=== PATIENT | female | born 1975 | race Caucasian/White ===

== ENCOUNTER 2023-10-28 13:18 | Outpatient (CLI) | payer MEDICAID, SELFPAY | END 2023-10-28 13:19 | disposition home or self-care (01) | LOC: RAD 13:18 | PROVIDERS: PCP Family Medicine; Visit Provider Family Medicine | DX: Z12.31 Encounter for screening mammogram for malignant neoplasm of breast (principal) | CPT/HCPCS: 77063; 77067 ==

== ENCOUNTER 2023-11-09 13:02 | Outpatient (CLI) | payer MEDICAID, SELFPAY ==
--- NOTE | 2023-11-09 13:10 | CTR_ITS ---
PROCEDURE INFORMATION: Exam: CT Temporal Bones Without Contrast. Exam date and time: 11/09/2023 1:33 PM Age: 48 years old Clinical indication: Face pain; Prior surgery; Surgery date: 6+ months; Surgery type: Numerous giovani ear surgeries; Patient HX: Left facial numbness x 1 year; Additional info: Atypical facial pain/disorder of facial nerve TECHNIQUE: Imaging protocol: Computed tomography of the temporal bones without contrast. Radiation optimization: All CT scans at this facility use at least one of these dose optimization techniques: automated exposure control; mA and/or kV adjustment per patient size (includes targeted exams where dose is matched to clinical indication); or iterative reconstruction. COMPARISON: No relevant prior studies available. RADIATION DOSE METRICS: Total DLP (mGy-cm): 295.95 FINDINGS: Right inner ear: Inner ear structures including the cochlea and semicircular canals are unremarkable. Right ossicles and middle ear: The middle ear ossicles are intact. Right external auditory canal: Normal. Right facial nerve canal: Normal. Right jugular foramen: No jugular dehiscence. Right carotid canal: No aberrant carotid canal. Right mastoid air cells: Underpneumatized right mastoid air cells may be related to prior mastoid disease. Intact bony septations. Left inner ear: Question dehiscence anterior limb of the left superior semicircular canal. The yarbrough of the anterior limb of the lateral semicircular canal appear markedly thinned in the anterior wall of the vestibule also appears markedly thinned. The cochlea is unremarkable in appearance. Left ossicles and middle ear: The left middle ear ossicles are absent. Recommend correlation with surgical history soft tissue is seen filling the medial aspect of the left middle ear. Left external auditory canal: Soft tissue is seen in the left external auditory canal. There is a wall down left mastoidectomy. Left facial nerve canal: The tympanic segment of the facial nerve canal is not well seen due to loss or dehiscence of the lateral bony wall and adjacent soft tissue within the middle ear cavity. The mastoid segment of the left facial nerve appears to be intact. Left jugular foramen: No jugular dehiscence. Left carotid canal: No aberrant carotid canal. Left mastoid air cells: Left wall down mastoidectomy Soft tissues: Visualized soft tissues are unremarkable. CT/CT temporal bone wo con* [id number] IMPRESSION: Postsurgical changes are seen involving the left temporal bone with a wall down mastoidectomy. Absence of the left middle ear ossicles may be surgical in nature. Soft tissue is seen in the medial aspect of the left middle ear which may be related to scar tissue, however, other etiologies including cholesteatoma cannot be excluded. The yarbrough of the lateral and superior semicircular canals appear to be thinned/dehiscent. The anterior wall of the vestibule also appears markedly thinned. The lateral bony wall of the tympanic segment of the left facial nerve is also dehiscent or thinned. The course of the tympanic segment of the left facial nerve is adjacent to the soft tissue seen within the medial portion of the left middle ear cavity. Recommend clinical correlation and comparison to prior imaging if available. Recommend follow up imaging as clinically warranted.
== END 2023-11-09 13:03 | disposition home or self-care (01) ==
LOC: RAD 13:04
PROVIDERS: PCP Family Medicine; Visit Provider Otolaryngology
DX: G50.1 Atypical facial pain (principal); G51.9 Disorder of facial nerve, unspecified; H71.92 Unspecified cholesteatoma, left ear
CPT/HCPCS: 70480

== ENCOUNTER 2023-11-27 16:22 | Emergency (ER) | payer MEDICAID, SELFPAY ==
[2023-11-27] VITALS (7 sets, daily range): BP systolic 130–166; BP diastolic 84–96; PULSE 84–99; RESP 16–18; TEMP 37; O2SAT 92–97; BMI 41.8
--- NOTE | 2023-11-27 16:55 | ED_ITS ---
HPI - Abdominal Pain 2 General: Chief Complaint: Abdominal Pain Stated Complaint: stomach pain, vomitting, leg pain Time Seen by Provider: 11/27/23 16:41 History of Present Illness: 48-year-old female with a history of obe sity and hypertension who presents to the emergency room with right upper quadrant pain, right flank pain and sciatic pain. She says she had been able to get out of bed because of her back. She is been having some nausea and vomiting. She says she was post to have her gallbladder out several years ago but ended up not having it done. No fevers. No altered mental status. No chest pain. Review of Systems 2 Narrative: Constitutional symptoms: Negative except as documented in HPI. Skin symptoms: Negative except as documented in HPI. Eye symptoms: Negative except as documented in HPI. ENMT symptoms: Negative except as documented in HPI. Respiratory symptoms: Negative except as documented in HPI. Cardiovascular symptoms: Negative except as documented in HPI. Gastrointestinal symptoms: Negative except as documented in HPI. Genitourinary symptoms: Negative except as documented in HPI. Musculoskeletal symptoms: Negative except as documented in HPI. Neurologic symptoms: Negative except as documented in HPI. Psychiatric symptoms: Negative except as documented in HPI. Endocrine symptoms: Negative except as documented in HPI. PFSH ED 2 PFSH: Family History (Updated 10/27/23 @ 14:44 by SHYLA Beebe) Grandmother Ovarian cancer Grandfather Cancer unknown what kind Social History (Updated 10/27/23 @ 14:45 by SHYLA Beebe) Smoking and tobacco/nicotine status: current every day tobacco/nicotine user e- cigarettes E-Cigarette Details: vaporizer device and with nicotine Alcohol intake: never Physical Exam 2 Narrative: EXAM NARRATIVE: General: Alert, no acute distress. Skin: Warm, dry. Head: Normocephalic, atraumatic. Neck: Supple, trachea midline. Eye: Extraocular movements are intact. Ears, nose, mouth and throat: mucosa moist. Cardiovascular: Regular, Normal peripheral perfusion. Respiratory: Lungs are clear to auscultation, respirations are non-labored, breath sounds are equal, Symmetrical chest wall expansion. Gastrointestinal: Soft, right upper quadrant pain, Non distended Musculoskeletal: Normal ROM, no deformity. Neurological: Alert and oriented, No focal neurological deficit observed. Psychiatric: Cooperative, appropriate mood & affect. Course 2 Vital Signs: Vital signs: Vital Signs Temperature 98.6 F 11/27/23 16:31 Pulse Rate 90 11/27/23 20:12 Respiratory Rate 17 11/27/23 20:12 Blood Pressure 166/96 11/27/23 20:12 Pulse Oximetry 93 11/27/23 20:12 Oxygen Delivery Me thod Room Air 11/27/23 20:12 MDM - Abdominal Pain Medical Decision Making Differential diagnosis for patient presenting with right upper quadrant abdominal pain including but not limited to and based on the above HPI, review of systems and physical exam: Cholelithiasis or cholecystitis. Hepatitis. Diverticulitis. Constipation. Ureterolithiasis. Urinary tract infection. Appendicitis. colitis. small bowel obstruction. crohn's flare. pancreatitis. gastritis. peptic ulcer. Aortic disection. Workup including imaging and lab work replaced based on the above differential, history and exam to evaluate differential diagnosis Lab Review: Laboratory results were reviewed and interpreted by myself the emergency room physician. No leukocytosis and CRP is not elevated. No anemia. No elevation in her LFTs. Ultrasound gallbladder: 3.5 mm stone and a positive Arnold sign. No evidence of gallbladder wall thickening or pericholecystic fluid. This was reviewed and interpreted by myself the emergency room physician. I also reviewed the radiology report. Consultation: I spoke with Dr. Carrasco about the patient. He recommends pain control and Augmentin and he will see her in clinic. I reviewed the patient's medical record. Reexamination: Patient appears much more comfortable now. Pain seems much more under control. Assessment and plan: Cholelithiasis Biliary colic Sciatica -IV Decadron and IV Toradol and IV Zofran. Symptoms have improved quite a bit. Treating her both for cholelithiasis/biliary colic and sciatica - Discharged home - Discussed findings and plan with patient. Answered any questions. - All laboratory values were reviewed and interpreted personally by myself, the ER physician - All imaging was reviewed and interpreted personally by myself, the ER physician. - Evaluation and treatment of this problem were appropriate in the emergency setting Lab Data 11/27/23 16:54 11/27/23 16:54 Labs/Radiology: Radiology Impressions Gallbladder Ultrasound 11/27/23 17:21 IMPRESSION: 1. Sonographically positive Arnold's sign suggesting possible cholecystitis. 2. Echogenic liver consistent with fatty infiltration of the liver. 3. 3.6 cm gallstone. Laboratory Results WBC 6.20 10^3/uL (3.29-11.43) 11/27/23 16:54 RBC 4.55 10^6/uL (3.85-5.65) 11/27/23 16:54 Hgb 12.20 g/dL (11.27-16.99) 11/27/23 16:54 Hct 38.7 % (36-47) 11/27/23 16:54 MCV 85.1 fl (85-98) 11/27/23 16:54 MCH 26.8 pg (27-33) L 11/27/23 16:54 MCHC 31.5 g/dL (30-55) 11/27/23 16:54 RDW 14.7 % (12.1-15.1) 11/27/23 16:54 Plt Count 247 10^3/cmm (157-399) 11/27/23 16:54 MPV 9.7 fL (7.4-10.4) 11/27/23 16:54 Neut % (Auto) 60.4 % 11/27/23 16:54 Lymph % (Auto) 27.4 % 11/27/23 16:54 [place] % (Auto) 7.9 % 11/27/23 16:54 Eos % (Auto) 3.4 % 11/27/23 16:54 Baso % (Auto) 0.6 % 11/27/23 16:54 Neut # (Auto) 3.74 10^3/uL (1.8-7.7) 11/27/23 16:54 Lymph # (Auto) 1.7 10^3/uL (0.8-4.8) 11/27/23 16:54 [place] # (Auto) 0.5 10^3/uL (0.2-0.9) 11/27/23 16:54 Eos # (Auto) 0.2 10^3/uL (0.0-0.8) 11/27/23 16:54 Baso # (Auto) 0.0 10^3/uL (0.0-0.1) 11/27/23 16:54 Nucleated RBC % (auto) 0 % 11/27/23 16:54 Nucleated RBCs # 0.0 /100WBC 11/27/23 16:54 Sodium 138 mmol/L (136-145) 11/27/23 16:54 Potassium 3.5 mmol/L (3.5-5.1) 11/27/23 16:54 Chloride 102 mmol/L (98-107) 11/27/23 16:54 Carbon Dioxide 26 mmol/L (22-29) 11/27/23 16:54 Anion Gap 13.5 (5-19) 11/27/23 16:54 BUN 8 mg/dL (6-20) 11/27/23 16:54 Creatinine 0.7 mg/dL (0.5-0.9) 11/27/23 16:54 GFR Calculation 90.1 mL/min (90-130) 11/27/23 16:54 Glucose 112 mg/dL (65-115) 11/27/23 16:54 Calculated Osmolality 285 mOsm/kg (285-295) 11/27/23 16:54 Calcium 8.7 mg/dL (8.5-10.5) 11/27/23 16:54 Total Bilirubin 0.2 mg/dL (0.15-1.2) 11/27/23 16:54 AST 18 U/L (0-32) 11/27/23 16:54 ALT 27 U/L (0-33) 11/27/23 16:54 Alkaline Phosphatase 96 U/L (35-105) 11/27/23 16:54 C-Reactive Protein 5.9 mg/L (0.0-4.9) H 11/27/23 16:54 Total Protein 6.7 g/dL (6.6-8.7) 11/27/23 16:54 Albumin 4.1 g/dL (3.5-5.2) 11/27/23 16:54 Globulin 2.6 g/dL (1.3-4.6) 11/27/23 16:54 Lipase 24 U/L (13-60) 11/27/23 16:54 Urine Color Yellow (Yellow) 11/27/23 17:05 Urine Appearance Clear (CLEAR) 11/27/23 17:05 Urine pH 6.5 (5-7) 11/27/23 17:05 Ur Specific [place]ley 1.015 (1.005-1.030) 11/27/23 17:05 Urine Protein Neg (Negative) 11/27/23 17:05 Urine Glucose (UA) Norm (Normal) 11/27/23 17:05 Urine Ketones Negative (Negative) 11/27/23 17:05 Urine Blood Neg (Negative) 11/27/23 17:05 Urine Nitrate Negative (Negative) 11/27/23 17:05 Urine Bilirubin Neg (Negative) 11/27/23 17:05 Urine Urobilinogen Norm mg/dL (Negative) 11/27/23 17:05 Ur Leukocyte Esterase Negative (Negative) 11/27/23 17:05 Urine RBC None /hpf (0-2) 11/27/23 17:05 Urine WBC None /hpf (0-5) 11/27/23 17:05 Ur Squamous Epith Cells 0-4 /hpf (0-5) H 11/27/23 17:05 Amorphous Sediment Not Reportable 11/27/23 17:05 Urine Bacteria None /hpf (NONE) 11/27/23 17:05 Urine Opiates Screen Negative ng/mL (Negative) 11/27/23 17:05 Ur Barbiturates Screen Negative ng/mL (Negative) 11/27/23 17:05 Ur Phencyclidine Scrn Negative ng/mL (Negative) 11/27/23 17:05 Ur Amphetamines Screen Negative ng/mL (Negative) 11/27/23 17:05 U Benzodiazepines Scrn Negative ng/mL (Negative) 11/27/23 17:05 Urine Cocaine Screen Negative ng/mL (Negative) 11/27/23 17:05 U Marijuana (THC) Screen Negative ng/mL (Negative) 11/27/23 17:05 All radiology interpretation(s) finalized by discharge Discharge Plan Discharge Patient Disposition: Home Clinical Impression: Sciatica, Biliary colic Cholelithiasis Qualifiers: Cholelithiasis location: gallbladder Cholecystitis presence: without cholecystitis Biliary obstruction: without biliary obstruction Qualified Code(s): K80.20 - Calculus of gallbladder without cholecystitis without obstruction Condition: Stable Prescriptions: New dexamethasone 6 mg tablet 6 mg PO DAILY 5 Days Qty: 5 0RF tramadol 50 mg tablet 50 mg PO Q8H PRN (Reason: pain) Qty: 20 0RF diclofenac sodium 50 mg tablet,delayed release (DR/EC) 50 mg PO Q12H Qty: 20 0RF amoxicillin-pot clavulanate 875-125 mg tablet 1 tab PO BID 10 Days Qty: 20 0RF ondansetron 8 mg tablet,disintegrating 8 mg PO .q6 PRN (Reason: nausea and vomiting) Qty: 14 0RF No Action gabapentin 300 mg capsule 300 mg PO TID Qty: 30 0RF fluoxetine 20 mg capsule 20 mg PO DAILY Qty: 60 0RF metoprolol succinate 25 mg tablet extended release 24 hr 25 mg PO DAILY Qty: 20 0RF Rx Instructions: take 1/2 a tablet Discharge Orders: Discharge ED (Routine); Ordered 11/27/23 Ordered By: Aye Jackson Referrals: Zach Morales MD [Physician] - 4-7 days (Call for an appointment on Thursday) Rossana Márquez DO [Primary Care Provider] - Discharge Diet: Low Cholesterol and Low Fat Discharge Activity: Increase activity as tolerated Patient Instructions: Biliary Colic (ED), Sciatica (ED), Abdominal Pain (ED), Opioid Safety Activity Restrictions/Additional Instructions: Thank you for choosing [facility] for your healthcare needs today. Please realize this is an emergency room and that we are providing you with a medical screening exam and this may not be complete and all inclusive of all the testing and or work up that you may need to determine your ailment or severity of your illness. You have been screened and evaluated and felt safe for discharge. Health conditions do change or evolve sometimes and as such it is important that you follow up with your Primary Doctor to be re checked, 3-5 days is a general good time frame for follow up. You are always welcome to return to the ED for re assessment if your symptoms are worsening or you have new concerns Coding Level of Care Code ED Wire Winding Machine Operator for Julito Hdz
[2023-11-27 17:01] LABS: Basophils % 0.6 %; Eosinophils # 0.2 10^3/uL (0.0-0.8); Eosinophils % 3.4 %; Hematocrit 38.7 % (36-47); Lymphocytes # 1.7 10^3/uL (0.8-4.8); Lymphocytes % 27.4 %; Mean Corpuscular HGB Conc 31.5 g/dL (30-55); Mean Corpuscular Hemoglobin 26.8 pg (27-33); Mean Corpuscular Volume 85.1 fl (85-98); Mean Platelet Volume 9.7 fL (7.4-10.4); Monocytes # 0.5 10^3/uL (0.2-0.9); Monocytes % 7.9 %; Neutrophils # 3.74 10^3/uL (1.8-7.7); Neutrophils % 60.4 %; Nucleated Red Blood Cells % 0 %; Platelet Count 247 10^3/cmm (157-399); Red Blood Count 4.55 10^6/uL (3.85-5.65); Red Cell Distribution Width 14.7 % (12.1-15.1)
[2023-11-27] MEDS: dexamethasone 10 mg/mL INJ IVP (17:04)
[2023-11-27] MEDS: ketorolac 30 mg/mL INJ IVP (17:04)
[2023-11-27] MEDS: ondansetron 2 mg/ML SDV 2 mL 4 MG IVP (17:04)
[2023-11-27 17:21] LABS: Alanine Aminotransferase 27 U/L (0-33); Albumin Level 4.1 g/dL (3.5-5.2); Alkaline Phosphatase 96 U/L (35-105); Anion Gap 13.5 (5-19); Aspartate Amino Transferase 18 U/L (0-32); Blood Urea Nitrogen 8 mg/dL (6-20); C Reactive Protein 5.9 mg/L (0.0-4.9); Calcium 8.7 mg/dL (8.5-10.5); Carbon Dioxide 26 mmol/L (22-29); Chloride 102 mmol/L (98-107); Creatinine Clr Calc Pharmacy 117.7244; Globulin 2.6 g/dL (1.3-4.6); Glomerular Filtration Rate 90.1 mL/min (90-130); Glucose 112 mg/dL (65-115); Lipase 24 U/L (13-60); Osmolality Calculated 285 mOsm/kg (285-295); Potassium 3.5 mmol/L (3.5-5.1); Sodium 138 mmol/L (136-145); Total Bilirubin 0.2 mg/dL (0.15-1.2); Total Protein 6.7 g/dL (6.6-8.7)
--- NOTE | 2023-11-27 17:21 | USR_ITS ---
PROCEDURE INFORMATION: Exam: US Abdomen, Limited; Right Upper Quadrant Exam date and time: 11/27/2023 6:57 PM Age: 48 years old Clinical indication: Abdominal pain; Acute; Additional info: Right upper quadrant pain, concern for cholecystitis TECHNIQUE: Imaging protocol: Real time ultrasound of the abdomen with image documentation. Limited exam focused on the right upper quadrant. COMPARISON: No relevant prior studies available. FINDINGS: Liver: 16.4 cm liver. Echogenic liver consistent with fatty infiltration of the liver. Gallbladder: Sonographically positive Arnold's sign suggesting possible cholecystitis. 3.6 cm gallstone. Biliary ducts: 4 mm common bile duct. Pancreas: Pancreas partially obscured by bowel gas. Right kidney: 10.5 x 5.2 x 5.6 cm right kidney with estimated volume 163 cc. Portal venous: Patent portal vein. US/US gall bladder [id number] IMPRESSION: 1. Sonographically positive Arnold's sign suggesting possible cholecystitis. 2. Echogenic liver consistent with fatty infiltration of the liver. 3. 3.6 cm gallstone.
[2023-11-27 17:29] LABS: Bilirubin Urine Neg (Negative); Blood Urine Neg (Negative); Glucose Urine UA Norm (Normal); Ketones Urine Negative (Negative); Leukocyte Esterase Urine Negative (Negative); Nitrate Urine Negative (Negative); Protein Urine Neg (Negative); Specific Gravity, Urine 1.015 (1.005-1.030); Squamous Epithelial Cell Urine 0-4 /hpf (0-5); Urine Appearance Clear (CLEAR); Urine Color Yellow (Yellow); Urobilinogen Urine Norm (Negative); pH Urine 6.5 (5-7)
[2023-11-27 17:34] LABS: Amphetamines Screen Urine Negative (Negative); Barbiturates Screen Urine Negative (Negative); Benzodiazepines Screen Urine Negative (Negative); Cocaine Screen Urine Negative (Negative); Opiate Screen Urine Negative (Negative); PCP Screen Urine Negative (Negative); THC Screen Urine Negative (Negative)
== END 2023-11-27 20:46 | disposition home or self-care (01) ==
PROVIDERS: Emergency Provider Emergency Medicine; PCP Family Medicine
DX: K80.20 Calculus of gallbladder without cholecystitis without obstruction (principal); M54.30 Sciatica, unspecified side; K80.50 Calculus of bile duct without cholangitis or cholecystitis without obstruction; F17.290 Nicotine dependence, other tobacco product, uncomplicated
CPT/HCPCS: 76705; 80053; 80306; 81001; 83690; 85025; 86140; 96374; 96375; 99285; J1100; J1885; J2405

== ENCOUNTER 2023-12-21 05:10 | Day surgery (SDC) | payer MEDICAID, SELFPAY ==
[2023-12-21] VITALS (18 sets, daily range): BP systolic 113–163; BP diastolic 69–113; PULSE 71–91; RESP 8–18; TEMP 36.1–36.9; O2SAT 90–98; BMI 42.7
[2023-12-21 05:43] LABS: OR HCG Qualitative Urine Negative (Negative)
[2023-12-21] MEDS: sodium chloride 0.9% 1,000 ML 30 ML IV (06:33)
--- NOTE | 2023-12-21 06:51 | P.HPUD_ITS ---
Surgery/Procedure H&P Update DATE OF PROCEDURE: December 21, 2023 DATE H&P PERFORMED: 12/09/23 H&P UPDATE INFORMATION: I have reviewed H&P completed within last 30 days, I have examined patient prior to procedure, No changes to prior documentation and H&P is in [facility] EMR on date indicated PREOP DIAGNOSIS: symptomatic cholelithiasis PLANNED PROCEDURE: Operation Date: 12/21/23 07:00 Proposed Procedures p Laparoscopic Cholecystectomy/ possible open [id number], 32639, R10.11(Not Applicable) - Zach Morales MD
[2023-12-21] MEDS: ceFAZolin 2,000 mg SDV 2000 MG IVP (06:59)
--- NOTE | 2023-12-21 06:59 | P.ANESASSM_ITS ---
Pre-Anesthetic Assessment Height/Weight: Height 1.6 m Weight 109.316 kg Temp Pulse Resp BP Pulse Ox O2 Del Method 97 F L 76 18 154/93 94 Room Air 12/21/23 06:07 12/21/23 06:07 12/21/23 06:07 12/21/23 06:07 12/21/23 06:07 12/21/23 06:14 Preop Diagnosis: symptomatic cholelithiasis Operation Date: 12/21/23 07:00 Proposed Procedures p Laparoscopic Cholecystectomy/ possible open [id number], 80118, R10.11(Not Applicable) - Zach Morales MD Familial anesthetic complications: None Was Beta Maggy taken within 24 hours: N/A Was Clonidine taken within 24 hours: N/A Last intake: Intake Last Liquid Date 12/20/23 Last Liquid Time 22:00 Last Solid Date 12/20/23 Last Solid Time 19:00 Social Tobacco and No alcohol Exam alert, oriented x 3, clear to auscultation bilaterally and regular rate & rhythm Airway Dentition: other (missing) Metabolic Morbid Obesity Anesthetic Plan ASA status: 2 Anesthesia: General Risk of > 500 ml blood loss (7ml/kg in children): No Medications/Allergies Home Medications Medication Instructions Recorded Confirmed Last Taken Type fluoxetine 20 mg capsule 20 mg PO DAILY #60 caps 10/27/23 12/18/23 12/21/23 04:00 Rx gabapentin 300 mg capsule 300 mg PO TID #30 caps 10/27/23 12/18/23 12/21/23 04:00 Rx metoprolol succinate 25 mg 25 mg PO DAILY #20 tabs 10/27/23 12/18/23 12/21/23 04:00 Rx tablet,extended release 24 hr Allergies Allergy/AdvReac Type Severity Reaction Status Date / Time shellfish derived Allergy Severe ALGY-Hives Verified 12/09/23 08:03 latex Allergy ALGY-Rash Verified 12/18/23 09:00 Current Medications Generic Name Dose Route Start Last Admin Trade Name Freq PRN Reason Stop Dose Admin Sodium Chloride 1,000 mls @ 30 mls/hr 12/21/23 06:00 12/21/23 06:33 Sodium Chloride 0.9% IV 30 mls/hr .Q24H MATTHIEU Administration PFSH Anesthesia Medical History Psychiatric care Family History Grandmother Ovarian cancer Grandfather Cancer unknown what kind Social History Smoking and tobacco/nicotine status: current every day tobacco/nicotine user e- cigarettes E-Cigarette Details: vaporizer device and with nicotine Alcohol intake: never Female Reproductive History Date of last menstrual period: 10/13/23 Data Anesthesia Cardiac Studies: No Data to Display
[2023-12-21] MEDS: BUPivacaine 0.25% INJ 30 mL 20 ML INJECTION (07:21)
[2023-12-21] MEDS: lidocaine-epi 1% PF 1:200,000 30 mL SDV 20 ML INJECTION (07:21)
--- NOTE | 2023-12-21 10:26 | PM.OP ---
Operative Report Date of procedure: December 21, 2023 Pre-op diagnosis: Symptomatic cholelithiasis Post-op diagnosis: Hydropic gallbladder, chronic cholecystitis Post-op findings: Gallbladder was hydropic, 120 cc of clear fluid were aspirated, chronically inflamed gallbladder with significant inflammatory changes of the hepatocystic triangle and adhesions from the omentum to the gallbladder. Stone noted to be impacted at the level of the cystic and infundibulum. 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 Intrahepatic fundus. Procedure done: Laparoscopic cholecystectomy Specimens removed/disposition: Gallbladder and contents Surgeon: Zach Morales MD Transcription Specialist: CALLI OR STaff Estimated blood loss: 20 Brief History: 48-year-old female with history of symptomatic cholelithiasis and gallstone measuring 3.6 cm on ultrasound who presented for excision. After discussion we will resume benefits as documented in my preop note we decided to proceed Procedure: Patient was brought into the OR, she was placed in the supine position. General anesthesia was given. The abdomen was prepped and draped in the usual sterile fashion. A timeout was conducted. The abdomen was accessed at Olivo's point with an Optiview trocar measuring 5 mm, pneumoperitoneum was obtained and initial laparoscopy showed no evidence of visceral injury during entry. A 12 mm trocar was placed under direct visualization on the supraumbilical location, I then proceeded to place a 5 mm trocars in the epigastrium right upper quadrant and right flank under direct visualization. The gallbladder was extremely distended, I decompressed the gallbladder with a needle obtaining 120 cc of clear fluid. The gallbladder was grasped from the fundus and retracted cephalad, adhesions from the omentum to the gallbladder and infundibulum were bluntly taken down. The infundibulum was very hard, there was a stone impacted at this level. I grasped the infundibulum and retracted in the inferior lateral direction exposing the hepatocystic triangle. The peritoneum anterior to the hepatocystic triangle was open with electrocautery, this opening was carried on the medial and lateral direction to the edges of the liver and then on the sides of the gallbladder to allow for better exposure. There was significant fatty infiltration on the cystic plate. With careful blunt and electrocautery dissection I was able to encircle the cystic artery and the cystic duct, lower third of the gallbladder was also elevated from the liver bed, a complete critical view of safety was not able to be obtained as it was noted there was a posterior branch of the cystic artery and therefore I proceeded to take down the cystic artery both anterior and the posterior branch before continuing that dissection. The cystic artery was double clipped proximally single clip distally on both anterior and posterior branches and cut. The arterial lumen was verified after transection. After this I was able to completely elevate the lower third of the gallbladder and only the cystic duct was noted to be entering the gallbladder. I then proceeded to double clipped the cystic duct proximally and single clipped distally and transected. The gallbladder was then removed from the liver bed with electrocautery, the fundus of the gallbladder was intrahepatic and therefore a small portion of the posterior wall was left in place to avoid an injury to the liver. Once the gallbladder was removed there is a small area of mucosa was cauterized, the liver bed otherwise appear hemostatic, the clips were in good position there was no evidence of bile leak and there was no evidence of bleeding. The area was suctioned and irrigated. I then proceeded to retrieve the specimen in an Endo Catch bag through the supraumbilical trocar site. It was apparent that due to the size of the stone inside of the gallbladder the small opening in the fascia was not enough to accommodate the size of it. Therefore I proceeded to increase my surgical incision from 1 cm to 3 cm, I dissected all the way down to the fascia and the fascia was sharply opened to allow passage of the gallbladder and contents. I then proceeded to close the supraumbilical trocar site fascia with a Billy-Nidia suture passer under direct visualization, 2 [id number] sutures were required. After this I filledl umbilical wound with water and tested for any air leak no air leak was noted. The epigastric right upper quadrant and right flank trocars were removed under direct visualization, the left upper quadrant trocar was used to remove the pneumoperitoneum and subsequently removed. The umbilical trocar site was closed in layers to use #0 Vicryl for Rodrigo's fascia, #3-0 Vicryl for the subcutaneous tissue #4-0 Monocryl for the skin. The other wounds were closed with #4-0 Monocryl for the skin. Dermabond was applied. At the end of the procedure all counts were correct, the patient tolerated well the procedure and was transferred to the PACU in stable condition.
[2023-12-21] MEDS: fentaNYL 50 mcg/mL INJ 2mL IVP ×2 (10:29→10:41)
[2023-12-21] MEDS: oxyCODONE 5 mg IR Tab/Cap PO (11:10)
--- NOTE | 2023-12-21 13:30 | ANE.PACU2 ---
Inpatient post-anesthesia follow up: Airway intact: Yes Vital signs: Temperature 97 F Pulse Rate 78 Respiratory Rate 18 Blood Pressure 132/84 Pulse Oximetry 94 Oxygen Delivery Me thod Room Air Oxygen Flow Rate 1 Fraction of Inspir ed Oxygen Hydration adequate: Yes Nausea and vomiting: No Pain level: 1 Mental status: Baseline
== END 2023-12-21 11:35 | disposition home or self-care (01) ==
PROVIDERS: PCP Family Medicine; Visit Provider Surgery
PROC: 0FT44ZZ Resection of Gallbladder, Percutaneous Endoscopic Approach (ICD-10-PCS; CPT 47562; principal; 2023-12-21 07:00)
DX: K80.10 Calculus of gallbladder with chronic cholecystitis without obstruction (principal); G47.33 Obstructive sleep apnea (adult) (pediatric); E11.9 Type 2 diabetes mellitus without complications; E66.01 Morbid (severe) obesity due to excess calories; Z68.41 Body mass index [BMI] 40.0-44.9, adult; F17.290 Nicotine dependence, other tobacco product, uncomplicated
CPT/HCPCS: 81025; 88304; J0690; J1100; J1885; J2250; J2405; J2704; J3010; J3490; J7030

== ENCOUNTER 2024-03-03 06:51 | Day surgery (SDC) | payer MEDICAID, SELFPAY ==
--- NOTE | 2024-03-03 06:08 | W.PM.OPSFHP ---
Same Day Surgery H&P Indication for Procedure/HPI DATE OF PROCEDURE: March 03, 2024 CHIEF COMPLAINT/INDICATIONFOR SURGICAL PROCEDURE: need for screening colonoscopy PREOP DIAGNOSIS: need for screening colonoscopy PLANNED PROCEDURE: Operation Date: 03/03/24 08:20 Proposed Procedures p Colonoscopy 08361, G0121, Z12.11(Not Applicable) - Zach Morales MD Medications/Allergies* Home Medications Medication Instructions Recorded Confirmed Type metoprolol succinate 25 mg 12.5 mg PO DAILY 03/01/24 03/01/24 History tablet,extended release 24 hr Allergies/Adverse Reactions Allergy/AdvReac Type Severity Reaction Status Date / Time shellfish derived Allergy Severe ALGY-Hives Verified 03/01/24 10:31 latex Allergy ALGY-Rash Verified 03/01/24 10:31 Pertinent History/Comorbid Conditions* Medical History (Updated 01/25/24 @ 14:45 by Juan Ramon Connor MD) Psychiatric care Family History (Updated 10/27/23 @ 14:44 by SHYLA Beebe) Ovarian cancer Grandmother Cancer Grandfather unknown what kind Social History Smoking and tobacco/nicotine status: never used tobacco/nicotine Alcohol intake: never Pertinent Exam Findings alert, oriented x 3, clear to auscultation bilaterally and regular rate & rhythm Recommendations Surgery/Procedure today Coding Level of Care Code Acute Code for Chg Fwd
[2024-03-03 07:06] VITALS: BP 153/98; PULSE 90; RESP 18; TEMP 36.2; O2SAT 98; BMI 43.4
[2024-03-03 07:11] LABS: OR HCG Qualitative Urine Negative (Negative)
[2024-03-03] MEDS: sodium chloride 0.9% 1,000 ML 30 ML IV (07:16)
--- NOTE | 2024-03-03 07:45 | ANES.PREANE2 ---
Pre-Anesthetic Assessment Height/Weight: Height 5 ft 3 in Weight 245 lb Temp Pulse Resp BP Pulse Ox O2 Del Method 97.1 F L 90 18 153/98 98 Room Air 03/03/24 07:06 03/03/24 07:06 03/03/24 07:06 03/03/24 07:06 03/03/24 07:06 03/03/24 07:06 Preop Diagnosis: need for screening colonoscopy Operation Date: 03/03/24 08:20 Proposed Procedures p Colonoscopy 37982, G0121, Z12.11(Not Applicable) - Zach Morales MD Was Beta Maggy taken within 24 hours: Yes Was Clonidine taken within 24 hours: N/A Last intake: Intake Last Liquid Date 03/02/24 Last Liquid Time 22:30 Last Solid Date 03/01/24 Last Solid Time 17:00 Social No alcohol and No tobacco Quit smoking 3 years ago Exam alert, oriented x 3, clear to auscultation bilaterally and regular rate & rhythm Airway Submandibular: within normal limits Cervical ROM: within normal limits Mallampati: Class III Comments: Comments: Very poor dentition. Denies any loose teeth Anesthetic Plan ASA status: 2 Anesthesia: MAC Other: No prior issues with anesthesia Completed bowel prep History of rapid heart rate, on daily metoprolol. Quit smoking 3 years ago, no inhaler use METs greater than 4 test negative this a.m. Plan for MAC anesthesia Medications/Allergies Home Medications Medication Instructions Recorded Confirmed Last Taken Type gabapentin 300 mg capsule 300 mg PO TID #30 caps 10/27/23 03/01/24 03/02/24 Rx fluoxetine 20 mg capsule 20 mg PO DAILY #30 caps 01/25/24 03/01/24 03/02/24 Rx metoprolol succinate 25 mg 12.5 mg PO DAILY 03/01/24 03/01/24 03/02/24 History tablet,extended release 24 hr Allergies Allergy/AdvReac Type Severity Reaction Status Date / Time shellfish derived Allergy Severe ALGY-Hives Verified 03/01/24 10:31 latex Allergy ALGY-Rash Verified 03/01/24 10:31 Current Medications Generic Name Dose Route Start Last Admin Trade Name Freq PRN Reason Stop Dose Admin Sodium Chloride 1,000 mls @ 30 mls/hr 03/03/24 07:00 03/03/24 07:16 Sodium Chloride 0.9% IV 30 mls/hr .Q24H MATTHIEU Administration PFSH Anesthesia Medical History Psychiatric care Family History Grandmother Ovarian cancer Grandfather Cancer unknown what kind Social History Smoking and tobacco/nicotine status: never used tobacco/nicotine Alcohol intake: never Data Anesthesia Cardiac Studies: No Data to Display
[2024-03-03 08:32] VITALS: BP 120/83; PULSE 103; RESP 20; TEMP 36.5; O2SAT 97
[2024-03-03 08:47] VITALS: BP 120/90; PULSE 88; RESP 18; O2SAT 99
--- NOTE | 2024-03-03 09:05 | ANE.PACU2 ---
Inpatient post-anesthesia follow up: Airway intact: Yes Vital signs: Temperature 97.7 F Pulse Rate 88 Respiratory Rate 18 Blood Pressure 120/90 Pulse Oximetry 99 Oxygen Delivery Me thod Room Air Oxygen Flow Rate Fraction of Inspir ed Oxygen Hydration adequate: Yes Nausea and vomiting: No Pain level: 1 Mental status: Baseline
== END 2024-03-03 09:05 | disposition home or self-care (01) ==
PROVIDERS: Student in an Organized Health Care Education/Training Program; PCP Family Medicine; Visit Provider Surgery
PROC: 0DJD8ZZ Inspection of Lower Intestinal Tract, Via Natural or Artificial Opening Endoscopic (ICD-10-PCS; CPT 45378; principal; 2024-03-03 08:20)
DX: Z12.11 Encounter for screening for malignant neoplasm of colon (principal); Z87.891 Personal history of nicotine dependence
CPT/HCPCS: 81025; G0121; J2704; J7030

== ENCOUNTER 2024-07-18 10:26 | Outpatient (CLI) | payer MEDICAID, SELFPAY ==
--- NOTE | 2024-07-18 10:30 | CT_ITS ---
WS: [id number] CT NECK TECHNIQUE: Contrast-enhanced CT of the neck with coronal and sagittal reformatted images. CLINICAL INFORMATION: ATYPICAL FACIAL PAIN COMPARISON: None. DLP: 245.[address] scans at [facility] use at least one of these dose optimization techniques: automated exposure control; mA and/or kV adjustment per patient size (includes targeted exams where dose is matched to clinical indication); or iterative reconstruction. FINDINGS: Lung apices are well aerated. Paranasal sinuses are well aerated. Mucosal thickening in the mastoid air cells bilaterally. Normal posterior nasopharynx. Normal parapharyngeal fat. Submandibular glands are normal. Parotid glands are normal. Prominent elongated LEFT submandibular lymph node. Otherwise no cervical lymphadenopathy. No evidence of supraglottic or glottic mass. Normal vallecula. Normal subglottic airway. Straightening of the normal cervical lordosis. Small thyroid nodules largest on the LEFT measuring 8 mm. Disc space narrowing worse at C5-6. CT/CT neck w con* [id number] IMPRESSION: 1. Normal salivary glands. 2. Prominent LEFT submandibular lymph node measuring 6 x 11 x 18 mm AP by vázquez sverse by craniocaudal. This is nonspecific but may be reactive. 3. Otherwise no cervical lymphadenopathy. 4. No evidence of supraglottic or glottic mass. 5. LEFT thyroid nodule measuring 7 mm. Smaller RIGHT thyroid nodule. 6. Chronic appearing opacification of the hypoplastic mastoid air cells bilate rally 7. Evidence of prior partial LEFT mastoidectomy 8. No other acute findings.
[2024-07-18] MEDS: iohexol 350 mg/mL 500 mL Btl (per mL) IV (11:28)
== END 2024-07-18 10:27 | disposition home or self-care (01) ==
PROVIDERS: PCP Family Medicine; Visit Provider Specialist
DX: G50.1 Atypical facial pain (principal); R59.0 Localized enlarged lymph nodes; E04.2 Nontoxic multinodular goiter; R93.0 Abnormal findings on diagnostic imaging of skull and head, not elsewhere classified; R93.7 Abnormal findings on diagnostic imaging of other parts of musculoskeletal system
CPT/HCPCS: 70491

== ENCOUNTER → 2024-08-04 12:00 | Outpatient (BNVA) | payer OTHER, SELFPAY | PROVIDERS: PCP Family Medicine; Visit Provider Psychiatry & Neurology Psychiatry | DX: E11.9 Type 2 diabetes mellitus without complications (principal); F33.2 Major depressive disorder, recurrent severe without psychotic features | CPT/HCPCS: 80061; 83036 ==

== ENCOUNTER → 2024-08-23 13:57 | Outpatient (BNVA) | payer MEDICAID, SELFPAY ==
[2024-08-05 14:55] VITALS: BP 147/90; BMI 42.2
== END ==
PROVIDERS: PCP Family Medicine; Visit Provider Internal Medicine Cardiovascular Disease
DX: R07.9 Chest pain, unspecified (principal)
CPT/HCPCS: 93005

== ENCOUNTER 2024-10-11 09:00 | Oncology outpatient (recurring) (ONCR) | payer MEDICAID, SELFPAY ==
[2024-08-05 14:55] VITALS: BP 147/90; BMI 42.2
[2024-10-11 10:24] LABS: Basophils # 0.1 10^3/uL (0.0-0.1); Eosinophils # 0.2 10^3/uL (0.0-0.8); Eosinophils % 2.6 %; Hematocrit 41.7 % (36-47); Lymphocytes # 2.1 10^3/uL (0.8-4.8); Lymphocytes % 33.8 %; Mean Corpuscular HGB Conc 31.2 g/dL (30-55); Mean Corpuscular Hemoglobin 25.6 pg (27-33); Mean Corpuscular Volume 82.1 fl (85-98); Mean Platelet Volume 10.1 fL (7.4-10.4); Monocytes # 0.5 10^3/uL (0.2-0.9); Monocytes % 8.4 %; Neutrophils # 3.34 10^3/uL (1.8-7.7); Neutrophils % 53.9 %; Nucleated Red Blood Cells % 0 %; Platelet Count 246 10^3/cmm (157-399); Red Blood Count 5.08 10^6/uL (3.85-5.65); Red Cell Distribution Width 14.7 % (12.1-15.1); White Blood Count 6.19 10^3/uL (3.29-11.43)
[2024-10-11 10:49] LABS: Alanine Aminotransferase 15 U/L (0-33); Alkaline Phosphatase 104 U/L (35-105); Anion Gap 14.4 (5-19); Aspartate Amino Transferase 11 U/L (0-32); Blood Urea Nitrogen 13 mg/dL (6-20); Calcium 8.6 mg/dL (8.5-10.5); Carbon Dioxide 26 mmol/L (22-29); Chloride 100 mmol/L (98-107); Creatinine Clr Calc Pharmacy 114.0227; Globulin 2.8 g/dL (1.3-4.6); Glomerular Filtration Rate 89.7 mL/min (90-130); Glucose 100 mg/dL (65-115); Lactate Dehydrogenase 131 U/L (135-214); Osmolality Calculated 282 mOsm/kg (285-295); Potassium 4.4 mmol/L (3.5-5.1); Sodium 136 mmol/L (136-145); Total Bilirubin 0.2 mg/dL (0.15-1.2); Total Protein 6.8 g/dL (6.6-8.7)
== END 2024-10-29 23:59 | disposition home or self-care (01) ==
PROVIDERS: PCP Family Medicine; Visit Provider Internal Medicine
DX: K81.1 Chronic cholecystitis (principal); F33.2 Major depressive disorder, recurrent severe without psychotic features
CPT/HCPCS: 36415; 80053; 83615; 85025

== ENCOUNTER 2025-01-10 10:45 | Outpatient (CLI) | payer MEDICAID, SELFPAY ==
[2024-08-05 14:55] VITALS: BP 147/90; BMI 42.2
--- NOTE | 2025-01-10 10:50 | MM_ITS ---
WS: [id number] BILATERAL 3D TOMOSYNTHESIS DIGITAL SCREENING MAMMOGRAPHY WITH CAD CLINICAL INFORMATION: SCREENING HISTORY: Screening mammogram. No current complaints. COMPARISON: 2023 TECHNIQUE: Bilateral CC and MLO views. FINDINGS: Scattered fibroglandular densities bilaterally. No suspicious focal mass, asymmetry, calcifications, or architectural distortion. No evidence of malignancy. Lucent centered calcification in the RIGHT breast MM/MM scr BI tomosynthesis [id number] IMPRESSION: DENSITY: There are scattered areas of fibroglandular density. BI-RADS: 2 - Benign. FOLLOW UP: 1 Year Follow-up Recommend return to annual screening mammography.
== END 2025-01-10 10:46 | disposition home or self-care (01) ==
LOC: RAD 10:46
PROVIDERS: PCP Family Medicine; Visit Provider Family Medicine
DX: Z12.31 Encounter for screening mammogram for malignant neoplasm of breast (principal)
CPT/HCPCS: 77063; 77067

== ENCOUNTER 2025-01-25 10:10 | Oncology outpatient (recurring) (ONCR) | payer MEDICAID, SELFPAY ==
[2024-08-05 14:55] VITALS: BP 147/90; BMI 42.2
[2025-01-25 10:30] LABS: Hematocrit 41.4 % (36-47); Hemoglobin 12.80 g/dL (11.27-16.99); Mean Corpuscular HGB Conc 30.9 g/dL (30-55); Mean Corpuscular Hemoglobin 25.8 pg (27-33); Mean Corpuscular Volume 83.5 fl (85-98); Nucleated Red Blood Cells % 0 %; Platelet Count 282 10^3/cmm (157-399); Red Blood Count 4.96 10^6/uL (3.85-5.65); White Blood Count 5.55 10^3/uL (3.29-11.43)
[2025-01-25 10:52] LABS: Alanine Aminotransferase 23 U/L (0-33); Albumin Level 4.1 g/dL (3.5-5.2); Alkaline Phosphatase 109 U/L (35-105); Anion Gap 13.3 (5-19); Aspartate Amino Transferase 15 U/L (0-32); Blood Urea Nitrogen 12 mg/dL (6-20); Calcium 8.6 mg/dL (8.5-10.5); Carbon Dioxide 30 mmol/L (22-29); Chloride 105 mmol/L (98-107); Globulin 3.0 g/dL (1.3-4.6); Glucose 110 mg/dL (65-115); Osmolality Calculated 296 mOsm/kg (285-295); Potassium 5.3 mmol/L (3.5-5.1); Sodium 143 mmol/L (136-145); Total Protein 7.1 g/dL (6.6-8.7)
== END 2025-01-29 23:59 | disposition home or self-care (01) ==
PROVIDERS: PCP Family Medicine; Visit Provider Internal Medicine
DX: C43.9 Malignant melanoma of skin, unspecified (principal)
CPT/HCPCS: 36415; 80053; 83615; 85025

== ENCOUNTER 2025-02-14 15:28 | Outpatient (CLI) | payer MEDICAID, SELFPAY ==
[2024-08-05 14:55] VITALS: BP 147/90; BMI 42.2
--- NOTE | 2025-02-14 15:38 | US_ITS ---
WS: [id number] URINARY BLADDER ULTRASOUND HISTORY: GROSS HEMURTURIA COMPARISON: None available. Urinary bladder is only minimally distended. No intraluminal filling defect. No free fluid adjacent to the urinary bladder. Bladder Wall Thickness: cm. Bladder Prevoid: 5.0 cm x 5.0 cm x 4.2 cm. Prevoid volume: 55.1 ml. Postvoid volume: 0 ml. US/US bladder [id number] IMPRESSION: 1. No post void residual within the urinary bladder. 2. Patient's bladder was only minimally distended for this exam. No intralumin al filling defect.
== END 2025-02-14 15:29 | disposition home or self-care (01) ==
LOC: RAD 15:28
PROVIDERS: PCP Family Medicine; Visit Provider Family Medicine
DX: R31.0 Gross hematuria (principal)
CPT/HCPCS: 76857

== ENCOUNTER 2025-03-26 13:13 | Emergency (ER) | payer MEDICAID, SELFPAY ==
[2024-08-05 14:55] VITALS: BP 147/90; BMI 42.2
--- OUTSIDE RECORDS SUMMARY | 2025-03-26 13:17 | XMS_ITS | Clinical Summary ---
Author Organization [facility] Address [address] [place] [address] Phone Care Team Providers Care Ammonia Technician Name Role Phone Rossana Márquez Primary Care Provider [phone] Allergies Active Allergy Reactions Criticality Noted Date Comments Shellfish Derived Hives High 10/27/2023 Medications gabapentin (NEURONTIN) 300 mg capsule Take 1 Capsule by mouth 3 times daily. 07/14/2024 Active metoprolol tartrate (LOPRESSOR) 25 mg tablet Take 0.5 Tablets by mouth daily. 07/05/2024 Active FLUoxetine (PROzac) 20 mg capsule Take 1 Capsule by mouth daily. 05/20/2024 Active Ventolin HFA 90 mcg/actuation inhaler INHALE 2 PUFFS BY MOUTH 4 TIMES DAILY FOR COUGH AND WHEEZE 07/11/2024 Active Active Problems Problem Noted Date Diagnosed Date Left facial pain 04/12/2024 Central perforation of tympanic membrane of righ t ear 04/11/2024 Mixed hearing loss, bilateral 04/11/2024 Post mastoidectomy sequelae, left 04/11/2024 History of cholesteatoma 04/11/2024 Weakness on left side of face 04/11/2024 Encounters Date Type Department Care Team Description 03/21/2025 External Device Data [facility] ABSTRACTION Provider, Abstract 02/14/2025 External Device Data [facility] ABSTRACTION Provider, Abstract 02/06/2025 3:00 PM CDT Office Visit [facility] Ear, N[facility] [address] [place] [address] [place] [phone] Eusebio Squires DO Mixed hearing loss, bilateral (Primary Dx); Central perforation of tympanic membrane of right ear; Post mastoidectomy sequelae, left; Weakness on left side of face; Left facial pain 01/03/2025 External Device Data [facility] ABSTRACTION Provider, Abstract from Last 3 Months Social History Tobacco Use Types Packs/Day Years Used Date Smoking Tobacco: Former Cigarettes Smokeless Tobacco: Never Tobacco Cessation:Counseling Given: Not Answered Alcohol Use Standard Drinks/Week Comments Never 0 (1 standard drink = 0.6 oz pur e alcohol) Comments Unknown Sex and Gender Information Value Date Recorded Sex Assigned at Not on file Legal Sex Female 9:42 AM CDT Gender Identity Not on file Sexual Orientation Not on file Last Filed Vital Signs Vital Sign Reading Time Taken Comments Blood Pressure 118/84 02/06/2025 4:26 PM CDT Orthostatics Pulse 63 02/06/2025 4:26 PM CDT Temperature - - Respiratory Rate - - Oxygen Saturation 97% 02/06/2025 4:2 6 PM CDT Inhaled Oxygen Concentration - - Weight 111.5 kg (245 lb 12. 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 [place] [phone] Eusebio Squires, DO [address] [place] [phone] Health Maintenance Due Date Last Done Comments Pre-Diabetes and Diabetes Screening 1977 DTAP/TDAP/TD VACCINES (1 - Tdap) 1996 HEPATITIS B VACCINES (1 of 3 - 19+ 3-dose series) 09/29 HPV/Cotest (21-29) 1998 CERVICAL CANCER SCREENING 10/11/2007 HPV/Cotest (30-65) 10/11/2007 PAP SMEAR 10/11/2007 BREAST CANCER SCREENING 2017 COLORECTAL SCREENING 2022 Colorectal Cancer Screening 2022 FIT-DNA Q 3 years 2022 FIT/FOBT Q 1 year 2022 Flex Sig/CT Colonography Q 5 years 2022 INFLUENZA VACCINE (#1) 2024 Procedures Procedure Name Priority Date/Time Associated Diagnosis Comments TX DEBRIDEMENT MASTOIDECTOMY CAVITY SIMPLE Routine 02/20/2025 5:10 PM CDT Post mastoidectomy sequelae, left from Last 3 Months Results * TX DEBRIDEMENT MASTOIDECTOMY CAVITY SIMPLE (02/20/2025 5:10 PM CDT) Narrative Eusebio Squires, - 02/20/2025 5:10 PM CDT Eusebio Squires DO 02/20/2025 5:14 PM Diagnosis: Post mastoidectomy sequelae, left side Procedure: Mastoid cavity debridement, left side EBL: none Description of Procedure: Debridement of the mastoid cavity/vault was performed under binocular microscopic visualization. Debris was removed without complication with microinstuments. Granulation was not noted. Tympanic membrane was intact. Middle ear appeared free of effusion. Facial nerve noted dehiscent in area of geniculate ganglion and horizontal segment. Stapes footplate intact. Eusebio Squires DO PROCEDURE/MINOR SURGICAL OR DERABLES Final Result from Last 3 Months Insurance [facility] [id number] Care Teams Ammonia Technician Relationship Specialty Start Date End Date Rossana Márquez DO [address] [place] [phone] PCP - General Family Practice 08/01/24
--- OUTSIDE RECORDS SUMMARY | 2025-03-26 13:17 | XMS_ITS | Encounter Summary ---
Author Organization [facility] Address [address] [place] [address] Care Team Providers Care Window Caser Name Role Phone Rossana Márquez Primary Care Provider [phone]- [phone] Encounter Details Date Type Department Care Team (Late st Contact Info) Description 03/21/2025 External Device Data [facility] ABSTRACTION Provider, Abstract NO ADDRESS ON FILE Social History Tobacco Use Types Packs/Day Years Used Date Smoking Tobacco: Former Cigarettes Smokeless Tobacco: Never Alcohol Use Standard Drinks/Week Comments Never 0 (1 standard drink = 0.6 oz pur e alcohol) Comments Unknown Sex and Gender Information Value Date Recorded Sex Assigned at Not on file Legal Sex Female 9:42 AM CDT Gender Identity Not on file Sexual Orientation Not on file documented as of this encounter Plan of Treatment Upcoming Encounters Date Type Department Care Team (Late st Contact Info) Description 07/31/2025 2:00 PM [employer] SUPERVISOR Office Visit [facility] Ear, N[facility] [address] [place] [address] [place] [phone] Eusebio Squires DO [address] [place] [place] [phone] documented as of this encounter Visit Diagnoses Not on filedocumented in this encounter Care Teams Window Caser Relationship Specialty Start Date End Date Rossana Márquez DO [address] [place] [phone] PCP - General Family Practice 08/01/24 documented as of this encounter
[2025-03-26 13:23] VITALS: BP 141/82; PULSE 86; RESP 18; TEMP 36.7; O2SAT 97
[2025-03-26 14:17] LABS: Hematocrit 39.6 % (36-47); Hemoglobin 12.20 g/dL (11.27-16.99); Mean Corpuscular HGB Conc 30.8 g/dL (30-55); Mean Corpuscular Hemoglobin 26.0 pg (27-33); Mean Corpuscular Volume 84.4 fl (85-98); Nucleated Red Blood Cells % 0 %; Platelet Count 234 10^3/cmm (157-399); Red Blood Count 4.69 10^6/uL (3.85-5.65); White Blood Count 5.56 10^3/uL (3.29-11.43)
[2025-03-26 14:35] LABS: Alanine Aminotransferase 13 U/L (0-33); Albumin Level 3.9 g/dL (3.5-5.2); Alkaline Phosphatase 106 U/L (35-105); Anion Gap 14.8 (5-19); Aspartate Amino Transferase 11 U/L (0-32); Blood Urea Nitrogen 6 mg/dL (6-20); Calcium 8.4 mg/dL (8.5-10.5); Carbon Dioxide 25 mmol/L (22-29); Chloride 103 mmol/L (98-107); Creatinine Clr Calc Pharmacy 129.7064; Globulin 2.6 g/dL (1.3-4.6); Glucose 91 mg/dL (65-115); Osmolality Calculated 285 mOsm/kg (285-295); Potassium 3.8 mmol/L (3.5-5.1); Sodium 139 mmol/L (136-145); Total Protein 6.5 g/dL (6.6-8.7)
--- NOTE | 2025-03-26 14:58 | W.ED.GENADLT ---
HPI - General Adult General: Chief complaint: General Medical Stated complaint: numbness in exremities, pain with walking Time Seen by Provider: 03/26/25 14:48 History of Present Illness: Patient is a pleasant 49-year-old female with history of lower extremity neuropathy, hypertension, (patient is not a diabetic), presents to the emergency room with worsening numbness and extremities for 3 days, upper and lower. She denies any neck injury. She denies any back injury. She states her tailbone is hurting. She has a history of sciatica. She denies any numbness in her groin or saddle anesthesia, incontinence, retention of urine. Her biggest issue is she cannot really walk without well. Associated symptoms: Reports nausea; Deny chest pain, confusion, dyspnea, headache(s), rash or vomiting Related Data Home Medications ?Medication ?Instructions ?Recorded ?Confirmed albuterol sulfate 90 mcg/actuation 2 puff inhalation Q6H PRN 08/04/24 03/26/25 aerosol inhaler Shortness Of Breath Or Wheezing epinephrine 0.3 mg/0.3 mL 0.3 mg IM Q10M PRN Allergic 08/04/24 03/26/25 injection, auto-injector Reaction acetaminophen 500 mg tablet 500 mg PO Q6H PRN Fever Or Pain 03/26/25 03/26/25 (Tylenol Extra Strength) Previous Rx's ?Medication ?Instructions ?Recorded gabapentin 300 mg capsule 300 mg PO TID #30 caps 10/27/23 metoprolol succinate 25 mg 25 mg PO DAILY #90 tabs 08/23/24 tablet,extended release 24 hr fluoxetine 40 mg capsule 40 mg PO DAILY #30 caps 02/13/25 hydroxyzine HCl 50 mg tablet 50 mg PO QID PRN anxiety/insomnia 02/13/25 #120 tabs trazodone 100 mg tablet 200 mg (2 x 100 mg) PO .HS PRN 02/13/25 insomnia #60 tabs gabapentin 300 mg capsule 300 mg PO BEDTIME 1 day #30 caps 03/26/25 methocarbamol 750 mg tablet 750 mg PO Q8H PRN muscle spasm #30 03/26/25 tabs Allergies Allergy/AdvReac Type Severity Reaction Status Date / Time shellfish derived Allergy Severe ALGY-Hives Verified 02/13/25 13:22 latex Allergy ALGY-Rash Verified 02/13/25 13:22 Review of Systems General: Reports: 10 or more systems reviewed and unremarkable except in HPI and below Const: Denies: fever(s) Eyes: Denies: change in vision or blurry vision ENMT: Denies: throat pain or oral sores Card: Denies: chest pain Resp: Denies: dyspnea or non-productive cough GI: Reports: nausea; Denies: abdominal pain or vomiting : Denies: flank pain or hematuria Musc: Reports: back pain, limited range of motion and muscle weakness; Denies: neck pain, extremity pain, joint pain, joint swelling or joint stiffness Skin/Breast: Denies: rash or pruritus Neuro: Reports: numbness in extremities, weakness in extremities, sensory changes, lack of coordination and difficulty walking; Denies: headache(s), frequent falls, dizziness, vertigo or confusion Psych: Denies: anxiety or depression Endo: Denies: polyuria or polydipsia [place]/Lymph: Denies: easy bruising All/Imm: Denies: urticaria or throat swelling PFSH ED PFSH: Medical History (Updated 03/26/25 @ 16:34 by BERNY Michel) Tachycardia Psychiatric care Family History Grandmother Ovarian cancer Grandfather Cancer unknown what kind Social History Smoking and tobacco/nicotine status: former use of tobacco/nicotine Second hand smoke exposure: Yes Alcohol intake: never Substance/Drug Use: never Adopted: No Caregiver/support person: No Lives independently: No Household members: spouse, family and children Housing: Manufactured/Mobile home Marital status: Number of children: 3 Number of grandchildren: 0 Highest education level completed: 11th Grade service: No Current occupational status: other Details: trying to get disability Pets and animals: Yes Pets & animals: dog(s) Leisure activites: other Leisure activities details: restorationism stuff Sexually active: Yes Do you think of yourself as: Straight/Heterosexual Current gender identity: Female Malinda/Muslim: Other Special malinda needs: No Agree to transfusion: Yes Female Reproductive History: Para: 3 Spontaneous abortions: No Physical Exam Const: COMMON NORMALS: no acute distress, patient oriented x3 and alert GENERAL APPEARANCE: other (moderately built and nourished) HENMT: COMMON NORMALS: normocephalic HEAD & SCALP: normocephalic MOUTH: other (oral mucosa normal) Eye: COMMON NORMALS: EOMs intact bilaterally and no scleral icterus Neck/C-Spine: COMMON NORMALS: no lymphadenopathy and Thyroid normal THYROID: Thyroid normal Lymph: LYMPHATIC: no lymphadenopathy noted Resp: COMMON NORMALS: clear to auscultation bilaterally AUSCULTATION: clear to auscultation bilaterally Cardio: COMMON NORMALS: regular rate, regular rhythm, No murmurs present (Cardio) and No rub (Cardio) RATE: regular rate RHYTHM: regular rhythm GI: COMMON NORMALS: Soft to palpation, non-tender and No hepatosplenomegaly present PALPATION: Yes Soft to palpation and Yes No hepatosplenomegaly present OTHER: Nondistended : COMMON NORMALS: Yes no CVA tenderness BLADDER/KIDNEY EXAM: Yes no CVA tenderness Back/Pelvis: COMMON NORMALS: no CVA tenderness Extremity: COMMON NORMALS: normal to inspection, full ROM, capillary refill normal and no pedal edema RIGHT UPPER EXTREMITY: Yes hand & digits OTHER: [place] test negative. Neuro: COMMON NORMALS: patient oriented x3 and no focal motor deficits SENSORIUM/ORIENTATION: Yes alert SPEECH: speech normal Psych: COMMON NORMALS: mental status grossly normal Skin: COMMON NORMALS: no rashes or lesions noted GENERAL SKIN EXAM: no rashes or lesions noted Course Reevaluation(s): Reevaluation #1: Improvement noted Vital Signs: Vital signs: Vital Signs Temperature 98.0 F 03/26/25 13:23 Pulse Rate 86 03/26/25 13:23 Respiratory Rate 18 03/26/25 13:23 Blood Pressure 141/82 03/26/25 13:23 Pulse Oximetry 99 03/26/25 16:28 Oxygen Delivery Me thod Room Air 03/26/25 16:28 [facility] - General Adult Medical Decision Making Patient is 49-year-old female with history of low back pain, weakness, not well-looking over the last 1 week, however no anesthesia to her groin, incontinence, or inability to void. She also has radicular pain to her upper extremities. She does not have any abnormality with her neck, no step-offs, no areas of bulging. Tinel test was negative. Given the negative findings for the upper extremities, CT was obtained of her low back, to see if there is any impingement or concern that MRI would need to be performed. Again, she did not exhibit any cauda equina syndrome concerns on history. CT of the lumbar was negative for intrusion in the spine. There is no reason to go forward with MRI. Pain was controlled with gabapentin, Toradol, Norflex. She stated improvement before she left. Lab Data 03/26/25 14:01 03/26/25 14:01 Radiology Impressions Lumbar Spine CT 03/26/25 14:59 IMPRESSION: No significant bony canal or neural foraminal narrowing. Laboratory Results WBC 5.56 10^3/uL (3.29-11.43) 03/26/25 14:01 RBC 4.69 10^6/uL (3.85-5.65) 03/26/25 14:01 Hgb 12.20 g/dL (11.27-16.99) 03/26/25 14:01 Hct 39.6 % (36-47) 03/26/25 14:01 MCV 84.4 fl (85-98) L 03/26/25 14:01 MCH 26.0 pg (27-33) L 03/26/25 14:01 MCHC 30.8 g/dL (30-55) 03/26/25 14:01 RDW 15.9 % (12.1-15.1) H 03/26/25 14:01 Plt Count 234 10^3/cmm (157-399) 03/26/25 14:01 MPV 9.6 fL (7.4-10.4) 03/26/25 14:01 Neut % (Auto) 51.0 % 03/26/25 14:01 Lymph % (Auto) 33.5 % 03/26/25 14:01 [place] % (Auto) 10.1 % 03/26/25 14:01 Eos % (Auto) 4.1 % 03/26/25 14:01 Baso % (Auto) 1.1 % 03/26/25 14:01 Neut # (Auto) 2.84 10^3/uL (1.8-7.7) 03/26/25 14:01 Lymph # (Auto) 1.9 10^3/uL (0.8-4.8) 03/26/25 14:01 [place] # (Auto) 0.6 10^3/uL (0.2-0.9) 03/26/25 14:01 Eos # (Auto) 0.2 10^3/uL (0.0-0.8) 03/26/25 14:01 Baso # (Auto) 0.1 10^3/uL (0.0-0.1) 03/26/25 14:01 Nucleated RBC % (auto) 0 % 03/26/25 14:01 Nucleated RBCs # 0.0 /100WBC 03/26/25 14:01 Sodium 139 mmol/L (136-145) 03/26/25 14:01 Potassium 3.8 mmol/L (3.5-5.1) 03/26/25 14:01 Chloride 103 mmol/L (98-107) 03/26/25 14:01 Carbon Dioxide 25 mmol/L (22-29) 03/26/25 14:01 Anion Gap 14.8 (5-19) 03/26/25 14:01 BUN 6 mg/dL (6-20) 03/26/25 14:01 Creatinine 0.6 mg/dL (0.5-0.9) 03/26/25 14:01 GFR Calculation 107.2 mL/min (90-130) 03/26/25 14:01 Glucose 91 mg/dL (65-115) 03/26/25 14:01 Calculated Osmolality 285 mOsm/kg (285-295) 03/26/25 14:01 Calcium 8.4 mg/dL (8.5-10.5) L 03/26/25 14:01 Total Bilirubin 0.2 mg/dL (0.15-1.2) 03/26/25 14:01 AST 11 U/L (0-32) 03/26/25 14:01 ALT 13 U/L (0-33) 03/26/25 14:01 Alkaline Phosphatase 106 U/L (35-105) H 03/26/25 14:01 Total Protein 6.5 g/dL (6.6-8.7) L 03/26/25 14:01 Albumin 3.9 g/dL (3.5-5.2) 03/26/25 14:01 Globulin 2.6 g/dL (1.3-4.6) 03/26/25 14:01 All radiology interpretation(s) finalized by discharge Discharge Plan Discharge Patient Disposition: Home Clinical Impression: Peripheral neuropathy Qualifiers: Peripheral neuropathy type: polyneuropathy, unspecified Qualified Code(s): G62.9 - Polyneuropathy, unspecified Condition: Stable Prescriptions: New gabapentin 300 mg capsule 300 mg PO BEDTIME 1 Days Qty: 30 0RF methocarbamol 750 mg tablet 750 mg PO Q8H PRN (Reason: muscle spasm) Qty: 30 0RF No Action gabapentin 300 mg capsule 300 mg PO TID Qty: 30 0RF metoprolol succinate 25 mg tablet extended release 24 hr 25 mg PO DAILY Qty: 90 3RF albuterol sulfate 90 mcg/actuation HFA aerosol inhaler 2 puff inhalation Q6H PRN (Reason: Shortness Of Breath Or Wheezing) epinephrine 0.3 mg/0.3 mL auto-injector 0.3 mg IM Q10M PRN (Reason: Allergic Reaction) Rx Instructions: for 2 doses fluoxetine 40 mg capsule 40 mg PO DAILY Qty: 30 2RF hydroxyzine HCl 50 mg tablet 50 mg PO QID PRN (Reason: anxiety/insomnia) Qty: 120 2RF trazodone 100 mg tablet 200 mg PO .HS PRN (Reason: insomnia) Qty: 60 2RF acetaminophen [Tylenol Extra Strength] 500 mg Tablet 500 mg PO Q6H PRN (Reason: Fever Or Pain) Discharge Orders: Discharge ED (Routine); Ordered 03/26/25 Ordered By: Marium Anthony Referrals: Rossana Márquez DO [Primary Care Provider, STAMP CLASSIFIER] Discharge Diet: Usual diet Discharge Activity: Limit activity as instructed Patient Instructions: Peripheral Neuropathy (ED), Patient Portal & [place] Instructions Activity Restrictions/Additional Instructions: - Medication at the pharmacy: Methocarbamol/Robaxin that is a muscle relaxer, gabapentin to add to your additional add gabapentin at home to make 600 mg at night. - Follow-up with your doctor regarding these changes and any possible referral, additional testing. Considerations: Your regular doctor may want to CAT scan your neck. Your regular doctor may want to evaluate you for carpal tunnel. - Return to ED for worsening symptoms. Thank you for choosing [facility] for your healthcare needs today. You have been screened and evaluated and felt safe for discharge. Health conditions do change or evolve sometimes and as such it is important that you follow up with your Primary Doctor to be re checked, 3-5 days is a general good time frame for follow up. You are always welcome to return to the ED for re assessment if your symptoms are worsening or you have new concerns Print Language: Senegalese Coding Level of Care Code ED Micro Photographer for Julito Hdz
--- NOTE | 2025-03-26 14:59 | CTR_ITS ---
PROCEDURE INFORMATION: Exam: CT Lumbar Spine Without Contrast Exam date and time: 03/26/2025 3:08 PM Age: 49 years old Clinical indication: Weakness; Additional info: Weakness, sensation changes TECHNIQUE: Imaging protocol: Computed tomography of the lumbar spine without contrast. Radiation optimization: All CT scans at this facility use at least one of these dose optimization techniques: automated exposure control; mA and/or kV adjustment per patient size (includes targeted exams where dose is matched to clinical indication); or iterative reconstruction. COMPARISON: US bladder [id number] 02/14/2025 3:47 PM RADIATION DOSE METRICS: Total DLP (mGy-cm): 1245.54 FINDINGS: Bones/joints: No acute fracture. Normal alignment. No significant disc bulge or herniation. No severe spinal canal stenosis. No significant neural foraminal narrowing. Soft tissues: Unremarkable. CT/CT lumbar spine wo con* [id number] IMPRESSION: No significant bony canal or neural foraminal narrowing.
[2025-03-26] MEDS: orphenadrine 30 mg/mL Inj 2 mL 60 MG IM (15:42)
[2025-03-26 16:28] VITALS: O2SAT 99
== END 2025-03-26 16:45 | disposition home or self-care (01) ==
PROVIDERS: Emergency Medicine; Emergency Provider Physician Assistant; PCP Family Medicine
DX: G62.9 Polyneuropathy, unspecified (principal); Z87.891 Personal history of nicotine dependence
CPT/HCPCS: 36415; 72131; 80053; 85025; 96372; 99284; J1100; J1885; J2360; J9999

== ENCOUNTER 2025-04-13 12:35 | Outpatient (CLI) | payer MEDICAID, SELFPAY ==
[2024-08-05 14:55] VITALS: BP 147/90; BMI 42.2
--- NOTE | 2025-04-13 12:40 | CTR_ITS ---
PROCEDURE INFORMATION: Exam: CT Neck With Contrast Exam date and time: 04/13/2025 1:08 PM Age: 49 years old Clinical indication: Condition or disease; Cancer; Other: Melanoma; Prior surgery; Surgery date: 6+ months; Surgery type: Gareth ears-perforated eardrums TECHNIQUE: Imaging protocol: Computed tomography of the neck with contrast. Radiation optimization: All CT scans at this facility use at least one of these dose optimization techniques: automated exposure control; mA and/or kV adjustment per patient size (includes targeted exams where dose is matched to clinical indication); or iterative reconstruction. Contrast material: OMNI 350; Contrast volume: 100 ml; Contrast route: INTRAVENOUS (IV); COMPARISON: CT neck w con* [id number] 07/18/2024 11:17 AM RADIATION DOSE METRICS: Total DLP (mGy-cm): 247.92 FINDINGS: Brain: Limited intracranial evaluation shows no acute abnormality. Mastoid air cells: Prior left mastoidectomy. No new abnormality of the right mastoid, similar to prior in appearance. Salivary glands: Submandibular and parotid glands are similar in appearance to prior, with the right submandibular gland appearing mildly larger than the left, with the left likely reflecting atrophy. Pharynx: Unremarkable. No significant tonsillar enlargement. Larynx: Unremarkable. Epiglottis is normal. Thyroid: Heterogeneous thyroid with probable tiny colloid cysts. This is similar in appearance to prior. Trachea: Visualized trachea is unremarkable. Lungs: Lung apices are unremarkable. Lymph nodes: Previous examination showed a prominent submandibular lymph node. This lymph node currently measures 1.8 cm craniocaudal by 1.3 x 0.8 cm axial. This is stable from prior. There is no new suspicious lymphadenopathy. Vasculature: No acute abnormality of the vasculature. Bones/joints: No new osseous abnormality.There are mild degenerative changes throughout the visible areas of the spine. CT/CT neck w con* [id number] IMPRESSION: Stable appearance of a minimally prominent left submandibular lymph node.
[2025-04-13] MEDS: iohexol 350 mg/mL 500 mL Btl (per mL) IV (13:16)
== END 2025-04-13 12:36 | disposition home or self-care (01) ==
LOC: RAD 12:36
PROVIDERS: PCP Family Medicine; Visit Provider Specialist
DX: C43.9 Malignant melanoma of skin, unspecified (principal); R59.0 Localized enlarged lymph nodes; R93.7 Abnormal findings on diagnostic imaging of other parts of musculoskeletal system; K11.8 Other diseases of salivary glands
CPT/HCPCS: 70491

== ENCOUNTER 2025-04-26 12:21 | Oncology outpatient (recurring) (ONCR) | payer MEDICAID, SELFPAY ==
[2024-08-05 14:55] VITALS: BP 147/90; BMI 42.2
[2025-04-26 13:00] LABS: Hematocrit 40.8 % (36-47); Hemoglobin 13.00 g/dL (11.27-16.99); Mean Corpuscular HGB Conc 31.9 g/dL (30-55); Mean Corpuscular Hemoglobin 26.6 pg (27-33); Mean Corpuscular Volume 83.4 fl (85-98); Nucleated Red Blood Cells % 0 %; Platelet Count 273 10^3/cmm (157-399); Red Blood Count 4.89 10^6/uL (3.85-5.65); White Blood Count 5.69 10^3/uL (3.29-11.43)
[2025-04-26 13:29] LABS: Alanine Aminotransferase 19 U/L (0-33); Albumin Level 4.2 g/dL (3.5-5.2); Alkaline Phosphatase 94 U/L (35-105); Anion Gap 13.1 (5-19); Aspartate Amino Transferase 15 U/L (0-32); Blood Urea Nitrogen 7 mg/dL (6-20); Calcium 8.8 mg/dL (8.5-10.5); Carbon Dioxide 28 mmol/L (22-29); Chloride 100 mmol/L (98-107); Globulin 2.6 g/dL (1.3-4.6); Glucose 118 mg/dL (65-115); Osmolality Calculated 283 mOsm/kg (285-295); Potassium 4.1 mmol/L (3.5-5.1); Sodium 137 mmol/L (136-145); Total Protein 6.8 g/dL (6.6-8.7); Uric Acid 3.9 mg/dL (2.4-5.7)
== END 2025-04-30 23:59 | disposition home or self-care (01) ==
PROVIDERS: PCP Family Medicine; Visit Provider Internal Medicine
DX: C43.9 Malignant melanoma of skin, unspecified (principal)
CPT/HCPCS: 36415; 80053; 83615; 84550; 85025; 85651